=== PATIENT | female | born 1985 | race Caucasian/White ===

== ENCOUNTER 2017-03-21 06:40 | Day surgery (SDC) | payer BC ==
[~2017-03-21] VITALS: Ht 165.1 cm; Wt 78.5 kg
[2017-03-21] MEDS ORDERED: MULT-1146 PO (07:00)
[2017-03-21] MEDS ORDERED: METF-815 PO (07:00)
[2017-03-21 07:47] LABS: GLUCOSE URINE NEGATIVE (NEGATIVE); KETONES URINE NEGATIVE (NEGATIVE); LEUKOCYTE ESTERASE URINE NEGATIVE (NEGATIVE); NITRITE URINE NEGATIVE (NEGATIVE); OCCULT BLOOD URINE 3+ (NEGATIVE); PH URINE 6.5 (4.5-8.0); PROTEIN URINE NEGATIVE (NEGATIVE); SPECIFIC GRAVITY URINE 1.024 (1.005-1.030); UROBILINOGEN URINE 0.2 E.U./dL (0.2-1.0)
[2017-03-21 07:48] LABS: BASOPHILS % 0.7 % (0.0-2.0); CLARITY URINE SL HAZY (CLEAR); COLOR URINE YELLOW (YELLOW); EOSINOPHILS % 1.1 % (0.0-5.0); HEMATOCRIT. 34.6 % (36.0-48.0); HEMOGLOBIN. 11.5 g/dL (12.0-16.0); LYMPHOCYTES % 46.2 % (20.0-50.0); MEAN CORPUSCULAR HEMOGLOBIN 29.9 pg (28.0-32.0); MEAN CORPUSCULAR HGB CONC 33.3 g/dL (31.0-37.0); MEAN CORPUSCULAR VOLUME 89.9 fL (81.0-99.0); MEAN PLATELET VOLUME 10.9 fl (7.4-10.4); MONOCYTES % 6.1 % (2.0-8.0); NEUTROPHILS % 45.9 % (40.0-76.0); PLATELET 209 x1000/uL (130-400); RED BLOOD CELL COUNT 3.85 mill/uL (4.2-5.4); RED CELL DISTRIBUTION WIDTH 14.5 % (11.6-14.6); WHITE BLOOD COUNT 6.8 x1000/uL (4.5-11.0)
[2017-03-21 07:54] LABS: PARTIAL THROMBOPLASTIN TIME 34.5 sec (24.0-34.0); PROTHROMBIN TIME 10.3 sec
[2017-03-21 07:59] LABS: UCG SCREEN NEGATIVE
[2017-03-21] MEDS ORDERED: LACTATED RINGERS 1,000 ML IV SCH ×2 (08:00→08:34)
[2017-03-21 08:09] LABS: RBC URINE 25-50 /hpf (0-2); SQUAMOUS EPITHELIAL CELL URINE 2+ /lpf (RARE/1+)
[2017-03-21 08:10] LABS: WBC URINE 0-2 /hpf (0-2)
[2017-03-21 08:11] LABS: BACTERIA URINE 2+
[2017-03-21] MEDS ORDERED: HYDROMORPHONE HCL/PF 2MG/ML CPJ IV PRN (08:30)
[2017-03-21] MEDS ORDERED: FENTANYL CITRATE/PF 50MCG/ML 2ML VIAL IV PRN (08:30)
[2017-03-21] MEDS ORDERED: ONDANSETRON HCL 4MG/2ML VIAL IV PRN (08:30)
[2017-03-21] MEDS ORDERED: PROPOFOL 200MG/20ML VIAL IV ONE (08:34)
[2017-03-21] MEDS ORDERED: LIDOCAINE HCL 1% 20ML VIAL (Pyxis) INJ ONE (08:34)
[2017-03-21] MEDS ORDERED: SUCCINYLCHOLINE CHLORIDE 200MG/10ML VIAL IV ONE (08:34)
[2017-03-21] MEDS ORDERED: MIDAZOLAM HCL 2 MG/2 ML VIAL ONE (08:34)
[2017-03-21] MEDS ORDERED: FENTANYL CITRATE/PF 50MCG/ML 2ML VIAL ONE (08:35)
[2017-03-21] MEDS ORDERED: DEXAMETHASONE 4MG/ML 1ML VIAL ONE (09:18)
[2017-03-21] MEDS ORDERED: ONDANSETRON HCL 4MG/2ML VIAL ONE (09:50)
[2017-03-21] MEDS ORDERED: METOCLOPRAMIDE HCL 10MG/2ML VIAL ONE (09:50)
[2017-03-21] MEDS ORDERED: CEFAZOLIN SODIUM 1000MG/VIAL ONE (09:53)
[2017-03-21] MEDS ORDERED: KETOROLAC 60MG/2ML VIAL IM ONE (09:57)
== END 2017-03-21 11:30 | disposition home or self-care (01) ==
LOC: OR 06:40
PROVIDERS: ATTEND Obstetrics & Gynecology Obstetrics
DX: N87.9 Dysplasia of cervix uteri, unspecified (principal); E11.9 Type 2 diabetes mellitus without complications; Z83.3 Family history of diabetes mellitus
CPT/HCPCS: 36415; 58558; 81001; 81025; 82962; 85025; 85610; 85730; 88305; J0330; J0690; J1100; J1885; J2250; J2405; J2765; J3010; J3490; J7120; J2704